=== PATIENT | female | born 1940 | race Caucasian/White ===

== ENCOUNTER → 2016-08-29 | Outpatient (CLI) | payer MEDICARE, OTHER ==
[~2016-08-29] MED LIST: ACET-915; ACET650T85; ATEN-51 PO; CITA10TA72; CRES10; FURO20TA3; HYDR-1666; LEVE100018; MELO-109; MEMA10TA16; OLAN2.5T16; PHEN60TA9; ZOLP6.252; [UNRECOGNIZED DRUG - CODE]
--- NOTE | 2016-08-29 22:49 | RADRPT ---
Echocardiogram Report Patient Name: THAD HERNANDEZ Gender: Female Date: 1940 Study Date: 29-Aug-2016 [place] Lifeguard: Jeaneth Fong RDCS Location: EKG Ref. Physician: CAL RAMIRES Quality: Technically Difficult Study Procedures: Transthoracic echocardiogram with complete 2D, M-Mode, and doppler examination. Indications: Palpitations. 2D/M Mode Doppler Measurement Value Normal Ranges Measurement Value Normal Ranges LVIDd 2D 3.3 3.5 - 5.6 cm AV Peak Gadiel 1.1 m/sec LVIDs 2D 2.8 2.1 - 4.1 cm AV Peak PG 4.7 mmHg LVPWd 2D 0.8 0.6 - 1.1 cm LVOT Peak Gadiel 0.9 m/sec IVSd 2D 0.9 0.6 - 1.1 cm LVOT Peak PG 3.5 mmHg AoR Diam 2D 2.5 2.0 - 3.7 cm MV E Peak Gadiel 0.5 m/sec EDV 2D 44.7 cm3 MV A Peak Gadiel 1.0 m/sec ESV 2D 22.3 cm3 MV E/A 0.6 LA Dimen 2D 2.7 2.3 - 4.0 cm MV Decel Time 146 msec MV Decel [place] 4 MV E/A 0.6 TR Peak Gadiel 2.6 m/sec TR Peak PG 26.7 mmHg RVSP 42.0 mmHg Findings Left Ventricle: Lower limits of normal systolic function. Normal left ventricular cavity size. Normal left ventricular wall thickness. Ejection fraction is visually estimated at 50 %. Tissue Doppler/Mitral Doppler indices are consistent with impaired relaxation (Stage I diastolic dysfunction). These segments of the LV are hypokinetic septum base segment and apical septum. Right Ventricle: Normal right ventricular size. Normal right ventricular systolic function. Left Atrium: The left atrium is normal in size. Right Atrium: The right atrium is normal in size. Mitral Valve: Mitral valve leaflets appear mildly thickened. Mild mitral annular calcification. Trace mitral regurgitation. Aortic Valve: No hemodynamically significant aortic stenosis by doppler. Aortic cusps appear mildly calcified. Trace aortic valve regurgitation. Tricuspid Valve: Normal appearance of the tricuspid valve. Estimated peak PA systolic pressure 42 mmHg. There is mild tricuspid regurgitation. Pulmonic Valve: Pulmonic valve not well visualized. Pericardium: Normal pericardium with no significant pericardial effusion. Aorta: Normal aortic root. IVC: The IVC is not well visualized. Conclusions 1.Lower limits of normal systolic function. Normal left ventricular cavity size. Normal left ventricular wall thickness. Ejection fraction is visually estimated at 50 %. Tissue Doppler/Mitral Doppler indices are consistent with impaired relaxation (Stage I diastolic dysfunction). These segments of the LV are hypokinetic septum base segment and apical septum. 2.Mitral valve leaflets appear mildly thickened. Mild mitral annular calcification. Trace mitral regurgitation. 3.Trace aortic valve regurgitation. 4.Normal appearance of the tricuspid valve. Estimated peak PA systolic pressure 42 mmHg. There is mild tricuspid regurgitation. Electronically Signed By: Cal Ramires 29-Aug-2016 22:48:53 -0800 Patient Name: THAD HERNANDEZ Study Date: 29-Aug-2016 [id number]
== END | disposition home or self-care (01) ==
LOC: EKG 13:25
PROVIDERS: ATTEND Internal Medicine
DX: R07.2 Precordial pain (principal); R00.2 Palpitations; R06.02 Shortness of breath; I34.0 Nonrheumatic mitral (valve) insufficiency; I35.1 Nonrheumatic aortic (valve) insufficiency; I07.1 Rheumatic tricuspid insufficiency
CPT/HCPCS: 93306